=== PATIENT | male | born 1950 | race Caucasian/White ===

== ENCOUNTER 2019-07-09 16:33 | Emergency (ER) | payer MEDICARE, OTHER ==
--- NOTE | 2019-07-09 16:41 | ERPHSYRPT ---
- History of Present Illness Time Seen by Provider: 07/09/19 16:41 Source: patient, EMS Physician History: the patient is a 69-year-old male with a past medical history significant for COPD, emphysema, recently diagnosed lymphoma and is due to start radiation therapy tomorrow, ongoing cigarette smoking, short foot, and a chronic wound to the bottom of his right foot in addition to a wound noted to his left foot presents with a chief complaint of generalized weakness and fever. He presents via EMS after being transported from home. Of note, the patient is a poor historian. He did endorse that he has had a productive cough over the last couple days and then this afternoon started to feel overall weak, started to experience chills, and had a subjective fever. He also endorse increased shortness of breath over the past couple days. He reportedly has not been taking his nebulizer treatments at home. He follows with [facility] for [facility] care in addition to oncology, specifically the location in [facility]. The patient denies chest pain, nausea, vomiting as well as abdominal pain. The patient denies diarrhea. He reportedly does not use supplemental oxygen at home and EMS noted that he had room air saturations at 88-89%. Allergies/Adverse Reactions: bupropion Allergy (Verified 07/09/19 17:13) cephalexin [From Keflex] Allergy (Verified 07/09/19 17:13) erythromycin base Allergy (Verified 07/09/19 17:13) oxycodone Allergy (Verified 07/09/19 17:13) quetiapine Allergy (Verified 07/09/19 17:13) simvastatin Allergy (Verified 07/09/19 17:13) - Review of Systems Constitutional: Fever, Chills, Weakness Eyes: No Symptoms Ears, Nose, & Throat: No Ear Pain, No Ear Discharge, No Throat Swelling, No Hoarse Respiratory: Cough, Dyspnea, Dyspnea on Exertion (CASTILLO), Wheezing Cardiac: No Chest Pain, No Edema, No Palpitations Abdominal/Gastrointestinal: No Abdominal Pain, No Nausea, No Vomiting, No Diarrhea Musculoskeletal: Joint Pain, Myalgias Skin: Other (Chronic wound noted to bottom of R foot as well as the left foot. Is), No Rash Psychological: No Symptoms Endocrine: No Symptoms Hematologic/Lymphatic: No Symptoms Immunological/Allergic: No Symptoms All Other Systems: Reviewed and Negative - Nursing Vital Signs Nursing Vital Signs: Initial Vital Signs Temperature 100.5 F 07/09/19 16:35 Pulse Rate 106 H 07/09/19 16:35 Respiratory Rate 28 H 07/09/19 16:35 Blood Pressure 125/58 07/09/19 16:35 O2 Sat by Pulse Oximetry 99 07/09/19 16:35 Pain Scale Pain Intensity 0 - Physical Exam General Appearance: moderate distress, alert (and), obese, other (Chronically ill appearing male) Eye Exam: PERRL/EOMI, EOM palsy/anisocoria (in the) Ears, Nose, Throat Exam: normal ENT inspection, other (The patient was wearing a NC supplying 2 LPM supplemental oxygen) Neck Exam: supple Respiratory Exam: respiratory distress, diminished breath sounds, rhonchi, wheezing, No chest tenderness Cardiovascular Exam: normal peripheral pulses, tachycardia, capillary refill <2 sec, capillary refill 2-3 sec Gastrointestinal/Abdomen Exam: soft, distention, No tenderness, No mass, No ecchymosis, No pulsatile mass, No rebound Rectal Exam: deferred Back Exam: normal inspection Extremity Exam: other (Feet appeared consistent with Charcot foot with chronic appearing diabetic ulcer noted to the bottom of the R foot with packing in the wound. Diabetic ulcer noted to the L foot) Neurologic Exam: alert, oriented x 3, cooperative Skin Exam: normal color, dry, rash, other (Skin felt hot to touch), No petechiae , No jaundice SpO2 Interpretation: hypoxic - Course Nursing assessment & vital signs reviewed: Yes EKG Interpreted by Me: RATE (108 bpm sinus tachycardia), NORMAL AXIS, NORMAL ST- T - Radiology Exams Chest X-ray Interpretation: Reviewed by me (Pneumonia, likely right middle lobe and right lower lobe, awaiting formal radiology review) Foot X-ray Interpretation: Teleradiologist Report (old 5th metatarsal fracture. No evidence of osteomyelitis) Ordered Tests: Active Orders 24 hr Category Date Time Status IV Insertion STAT Care 07/09/19 16:44 Active CHEST 2 VIEWS (PA AND LAT) Stat Exams 07/09/19 16:42 Taken FOOT (MINIMUM 3 VIEWS) Stat Exams 07/09/19 16:50 Taken BLOOD CULTURE Stat Lab 07/09/19 17:15 Received BMP Stat Lab 07/09/19 16:55 Completed CBC W DIFF Stat Lab 07/09/19 16:55 Completed Hepatic Function Panel Stat Lab 07/09/19 16:55 Completed LIPASE Stat Lab 07/09/19 16:55 Completed Lactic Acid Stat Lab 07/09/19 16:56 Completed Lactic Acid Stat Lab 07/09/19 21:52 Completed TROPONIN Stat Lab 07/09/19 16:55 Completed Peak Expiratory Flow Rate ONCE RT 07/09/19 19:31 Active Respiratory Therapy Assessment DAILY RT 07/09/19 19:31 Active Medication Summary Discontinued Medications Generic Name Dose Route Start Last Admin Trade Name Freq PRN Reason Stop Dose Admin Acetaminophen 975 mg 07/09/19 16:51 07/09/19 17:11 Tylenol 325 Mg PO 07/09/19 16:52 975 mg STAT ONE Administration Acetaminophen Confirm 07/09/19 17:11 Tylenol 325 Mg Administered 07/09/19 17:12 Dose 975 mg .ROUTE .STK-MED ONE Albuterol Sulfate 2.5 mg 07/09/19 19:16 07/09/19 19:26 Proventil 2.5 Mg/3 Ml Neb IH 07/09/19 19:17 2.5 mg STAT ONE Administration Albuterol Sulfate Confirm 07/09/19 19:22 Proventil Solution 2.5 Mg/0.5 Ml Administered 07/09/19 19:23 Dose 2.5 mg IH .STK-MED ONE Albuterol/Ipratropium 3 ml 07/09/19 19:16 07/09/19 19:25 Duoneb 0.5-3 Mg/3 Ml Neb IH 07/09/19 19:17 3 ml STAT ONE Administration Albuterol/Ipratropium Confirm 07/09/19 19:22 Duoneb 0.5-3 Mg/3 Ml Neb Administered 07/09/19 19:23 Dose 3 ml IH .STK-MED ONE Aspirin 324 mg 07/09/19 19:20 07/09/19 20:21 Baby Aspirin 81 Mg Chew PO 07/09/19 19:21 Not Given STAT ONE Lactated Ringer's 1,000 mls @ 999 mls/hr 07/09/19 17:26 07/09/19 19:18 Lactated Ringers IV 07/09/19 18:26 Infused .Q1H1M ONE Infusion Lactated Ringer's Confirm 07/09/19 17:25 Lactated Ringers Administered 07/09/19 17:26 Dose 1,000 mls @ ud IV .STK-MED ONE Meropenem 1 g/ Sodium Chloride 100 mls @ 200 mls/hr 07/09/19 17:50 07/09/19 18:00 IV 07/09/19 18:19 200 mls/hr STAT ONE Administration Vancomycin HCl 1 gm in 250 mls @ 167 mls/hr 07/09/19 18:00 07/09/19 21:00 Vancomycin 1gm/ Ns 250ml IV 07/09/19 19:59 167 mls/hr Q1H ASHKAN Administration Sodium Chloride Confirm 07/09/19 18:06 Sodium Chloride 0.9% 100 Ml Ivpb Administered 07/09/19 18:07 Dose 100 mls @ ud IV .STK-MED ONE Lactated Ringer's 1,000 mls @ 125 mls/hr 07/09/19 19:30 07/09/19 21:08 Lactated Ringers IV 08/08/19 19:29 125 mls/hr .Q8H ASHKAN Administration Vancomycin HCl Confirm 07/09/19 18:13 Vancomycin 1gm/ Ns 250ml Administered 07/09/19 18:14 Dose 250 mls @ ud IV .STK-MED ONE Vancomycin HCl Confirm 07/09/19 20:57 Vancomycin 1gm/ Ns 250ml Administered 07/09/19 20:58 Dose 250 mls @ ud IV .STK-MED ONE Lactated Ringer's Confirm 07/09/19 21:07 Lactated Ringers Administered 07/09/19 21:08 Dose 1,000 mls @ ud IV .STK-MED ONE Meropenem Confirm 07/09/19 18:06 Merrem 1 Gm Administered 07/09/19 18:07 Dose 1 g IV .STK-MED ONE Lab/Rad Data: Laboratory Result Diagrams 07/09/19 16:55 07/09/19 16:55 Laboratory Results 07/09/19 07/09/19 07/09/19 Range/Units 21:52 16:56 16:55 WBC (4.0-10.5) K/mm3 RBC (4.1-5.6) M/mm3 Hgb (12.5-18.0) gm/dl Hct (42-50) % MCV (78-100) fl MCH (26-32) pg MCHC (32-36) g/dl RDW (11.5-14.0) % Plt Count (150-450) K/mm3 MPV (7.5-11.0) fl Gran % (36.0-66.0) % Eos # (Auto) (0-0.5) Absolute Lymphs (auto) (1.0-4.6) Absolute Monos (auto) (0.0-1.3) Lymphocytes % (24.0-44.0) % Monocytes % (0.0-12.0) % Eosinophils % (0.00-5.0) % Basophils % (0.0-0.4) % Absolute Granulocytes (1.4-6.9) Basophils # (0-0.4) Sodium (137-145) mmol/L Potassium (3.5-5.1) mmol/L Chloride (98-107) mmol/L Carbon Dioxide (22-30) mmol/L Anion Gap (5-15) MEQ/L BUN (9-20) mg/dL Creatinine (0.66-1.25) mg/dL Estimated GFR ML/MIN Glucose (74-106) mg/dL Lactic Acid 3.1 H 5.1 H (0.4-2.0) Calcium (8.4-10.2) mg/dL Total Bilirubin (0.2-1.3) mg/dL Direct Bilirubin (0.0-0.4) mg/dL AST (17-59) U/L ALT (0-50) U/L Alkaline Phosphatase (38-126) U/L Troponin I (0.000-0.034) ng/mL Serum Total Protein (6.3-8.2) g/dL Albumin (3.5-5.0) g/dL Lipase (23-300) U/L Influenza Type A Ag NEGATIVE (NEGATIVE) Influenza Type B Ag NEGATIVE (NEGATIVE) RSV (PCR) NEGATIVE (Negative) Slides for Path Review 07/09/19 07/09/19 Range/Units 16:55 16:55 WBC 15.1 H (4.0-10.5) K/mm3 RBC 4.69 (4.1-5.6) M/mm3 Hgb 14.3 (12.5-18.0) gm/dl Hct 44.2 (42-50) % MCV 94.2 (78-100) fl MCH 30.5 (26-32) pg MCHC 32.4 (32-36) g/dl RDW 13.7 (11.5-14.0) % Plt Count 243 (150-450) K/mm3 MPV 11.0 (7.5-11.0) fl Gran % 90.8 H (36.0-66.0) % Eos # (Auto) 0.01 (0-0.5) Absolute Lymphs (auto) 0.55 L (1.0-4.6) Absolute Monos (auto) 0.82 (0.0-1.3) Lymphocytes % 3.6 L (24.0-44.0) % Monocytes % 5.4 (0.0-12.0) % Eosinophils % 0.1 (0.00-5.0) % Basophils % 0.1 (0.0-0.4) % Absolute Granulocytes 13.74 H (1.4-6.9) Basophils # 0.01 (0-0.4) Sodium 142 (137-145) mmol/L Potassium 3.8 (3.5-5.1) mmol/L Chloride 107 (98-107) mmol/L Carbon Dioxide 21 L (22-30) mmol/L Anion Gap 18.3 H (5-15) MEQ/L BUN 16 (9-20) mg/dL Creatinine 0.89 (0.66-1.25) mg/dL Estimated GFR > 60.0 ML/MIN Glucose 159 H (74-106) mg/dL Lactic Acid (0.4-2.0) Calcium 9.5 (8.4-10.2) mg/dL Total Bilirubin 0.90 (0.2-1.3) mg/dL Direct Bilirubin 0.5 H (0.0-0.4) mg/dL AST 41 (17-59) U/L ALT 19 (0-50) U/L Alkaline Phosphatase 105 (38-126) U/L Troponin I 0.044 H* (0.000-0.034) ng/mL Serum Total Protein 8.0 (6.3-8.2) g/dL Albumin 4.1 (3.5-5.0) g/dL Lipase 83 (23-300) U/L Influenza Type A Ag (NEGATIVE) Influenza Type B Ag (NEGATIVE) RSV (PCR) (Negative) Slides for Path Review YES - Progress Progress: improved Progress Note: 07/09/19 19:20 Currently paging the [facility] for transfer for severe sepsis due to PNA. 07/09/19 19:28 [facility] reported has no beds. Patient will need to be either admitted here or transferred to another facility 07/09/19 20:[address] Cisneros, no doctor physician for this [facility] this evening who recommended transfer to another facility. I spoke to the patient about this and he did not want to go to [place] and ok with being transferred to [place]. 07/09/19 20:31 I spoke to [facility] transfer center who agreed to accept the patient for transfer. Will call back with the accepting physician 07/09/19 20:47 [facility] called back and Dr. Rdz accepted the patient for transfer. Counseled pt/family regarding: lab results, diagnosis, rad results - Departure Departure Disposition: Transfer ([facility]) Clinical Impression: Pneumonia, Severe sepsis, Charcot foot due to diabetes mellitus, Diabetic ulcer of left foot, Open nondisplaced fracture of fifth right metatarsal bone, Metabolic acidosis Condition: Stable Critical Care Time: No Referrals: HOSPITAL,'S [Primary Care Provider] -
[2019-07-09] MEDS ORDERED: TYLENOL 325 MG PO ONE (16:51)
[2019-07-09] MEDS ORDERED: TYLENOL 325 MG ONE (17:11)
[2019-07-09 17:23] LABS: Absolute Neutrophil Ct (ANC) 13.74 (1.4-6.9); BASOPHIL % 0.1 % (0.0-0.4); Basophil (Absolute #) 0.01 (0-0.4); Eosinophil % 0.1 % (0.00-5.0); Eosinophil (Absolute #) 0.01 (0-0.5); Hematocrit 44.2 % (42-50); Hemoglobin 14.3 gm/dl (12.5-18.0); Lymphocyte (Absolute #) 0.55 (1.0-4.6); Lymphocytes % 3.6 % (24.0-44.0); Mean Cell Volume 94.2 fl (78-100); Mean Corpuscular Hemoglobin 30.5 pg (26-32); Mean Corpuscular Hgb Concent. 32.4 g/dl (32-36); Monocyte (Absolute #) 0.82 (0.0-1.3); Monocytes % 5.4 % (0.0-12.0); Neutrophil % 90.8 % (36.0-66.0); Platelet Count 243 K/mm3 (150-450); Red Blood Count 4.69 M/mm3 (4.1-5.6); Red Cell Distribution Width 13.7 % (11.5-14.0); White Blood Count 15.1 K/mm3 (4.0-10.5)
[2019-07-09] MEDS ORDERED: Lactated Ringers 1,000 ML IV ONE ×3 (17:25→21:07)
[2019-07-09 17:39] LABS: INFLUENZA A NEGATIVE (NEGATIVE); INFLUENZA B NEGATIVE (NEGATIVE); RESPIRATORY SYNCTIAL VIRUS NEGATIVE (Negative)
[2019-07-09 17:45] LABS: ALBUMIN 4.1 g/dL (3.5-5.0); ALKALINE PHOSPHATASE 105 U/L (38-126); ANION GAP 18.3 MEQ/L (5-15); BLOOD UREA NITROGEN 16 mg/dL (9-20); CHLORIDE 107 mmol/L (98-107); Calcium 9.5 mg/dL (8.4-10.2); Carbon Dioxide 21 mmol/L (22-30); Creatinine 1 0.89 mg/dL (0.66-1.25); Direct Bilirubin 0.5 mg/dL (0.0-0.4); Glucose 159 mg/dL (74-106); LIPASE 83 U/L (23-300); Potassium 3.8 mmol/L (3.5-5.1); SGOT/AST 41 U/L (17-59); SGPT/ALT 19 U/L (0-50); SODIUM 142 mmol/L (137-145)
[2019-07-09 17:47] LABS: TROPONIN 0.044 ng/mL (0.000-0.034)
[2019-07-09] MEDS ORDERED: Merrem 1 GM 1 G in Sodium Chloride 100ML MINI-BAG PLUS 100 ML IV ONE (17:50)
[2019-07-09] MEDS ORDERED: Merrem 1 GM IV ONE (18:06)
[2019-07-09] MEDS ORDERED: Sodium Chloride 0.9% 100 ML IVPB 100 ML IV ONE (18:06)
[2019-07-09] MEDS ORDERED: Vancomycin 1GM/ Ns 250ML*** 250 ML IV ONE ×2 (18:13→20:57)
[2019-07-09] MEDS ORDERED: PROVENTIL 2.5 MG/3 ML NEB IH ONE (19:16)
[2019-07-09] MEDS ORDERED: DUONEB 0.5-3 MG/3 ml Neb IH ONE ×2 (19:16→19:22)
[2019-07-09] MEDS: Vancomycin 1GM/ Ns 250ML*** 1 GM/250 ML IVPB IV SCH ×2 (19:18→21:00)
[2019-07-09] MEDS ORDERED: BABY ASPIRIN 81 MG CHEW PO ONE (19:20)
[2019-07-09] MEDS ORDERED: PROVENTIL Solution 2.5 MG/0.5 ML IH ONE (19:22)
[2019-07-09] MEDS ORDERED: Lactated Ringers 1,000 ML IV SCH (19:30)
[2019-07-09 21:22] LABS: Slide Review 1 YES
[2019-07-09 21:45] VITALS: BP 93/58; PULSE 88; O2SAT 97
--- NOTE | 2019-07-10 08:33 | XRAY ---
Indication: Wound bottom of foot. Osteomyelitis. Comparison: None 3 nonweightbearing views of the right foot demonstrates plantar soft tissue swelling, Charcot foot appearance, osteopenia, 1st/2nd MTP degenerative changes, old distal 5th metatarsal fracture, navicular bone cyst, small heel spur, talonavicular accessory ossicle, and medial ankle vascular clip. No acute fracture, suspicious bony lesions, or osseous destructive process.
--- NOTE | 2019-07-10 08:36 | XRAY ---
Indication: Fever and cough. Comparison: None PA/lateral chest demonstrates diffuse right lung interstitial alveolar opacities without consolidation/large effusion. Remaining heart and left lung unremarkable. Bony thorax intact with moderate degenerative changes and surgical clips base of the left neck.
== END 2019-07-09 21:54 | disposition short-term general hospital (02) ==
LOC: ED 16:33
DX: J18.9 Pneumonia, unspecified organism (principal); R65.20 Severe sepsis without septic shock; I73.9 Peripheral vascular disease, unspecified; E11.621 Type 2 diabetes mellitus with foot ulcer; L97.529 Non-pressure chronic ulcer of other part of left foot with unspecified severity; S92.354B Nondisplaced fracture of fifth metatarsal bone, right foot, initial encounter for open fracture; E87.2 Acidosis
CPT/HCPCS: 36000; 36415; 71046; 73630; 80048; 80076; 83605; 83690; 84484; 85025; 87040; 87631; 94150; 94640; 96360; 96361; 96365; 96367; 99285; J3370; J7609; A9270-GY

== ENCOUNTER 2023-09-15 12:36 | Emergency (ER) | payer OTHER ==
--- NOTE | 2023-09-15 12:44 | ERPHSYRPT ---
- History of Present Illness Time Seen by Provider: 09/15/23 12:44 Historian: patient, family, EMS Exam Limitations: clinical condition Physician History: This is a morbidly obese 73-year-old white female patient who is a poor historian and additional, independent history was obtained by the paramedics as well as the patient's spouse because the patient is a poor historian. This patient was brought to the emergency department secondary to significant right upper quadrant abdominal pain and bilateral flank pain and weakness. Upon arrival to the patient's home, the patient's room air oxygen saturation level was 88%. He was placed on 3 L nasal cannula. He arrives to the emergency department, vital signs are stable with a room air oxygen saturation now at 96 to 98%. Patient receives his primary care at the [facility] in [place]. The call to the paramedics was for right upper quadrant abdominal pain. Patient woke up with significant (8 out of 10) right upper quad abdominal pain that has only mildly subsided. Patient ate roast chicken, baked beans and mac & cheese last evening for supper. He has had a gallbladder attack in the past. Today, there is no associated vomiting symptoms. Patient also complains of feeling weak. Patient currently denies chest pain. Patient has a history of COPD, diabetes, peptic ulcer disease and has a history of lymphoma in the past. He continues to be a daily smoker of tobacco cigarettes. Timing/Duration: today Activities at Onset: none Quality: aching Abdominal Pain Onset Location: RUQ Pain Radiation: no radiation Severity of Pain-Max: moderate Severity of Pain-Current: mild (Moderate) Modifying Factors: Improves With: nothing Associated Symptoms: shortness of breath, weakness Previous symptoms: no prior history, no recent treatment Allergies/Adverse Reactions: bupropion Allergy (Verified 09/15/23 12:58) cephalexin [From Keflex] Allergy (Verified 09/15/23 12:58) erythromycin base Allergy (Verified 09/15/23 12:58) oxycodone Allergy (Verified 09/15/23 12:58) quetiapine Allergy (Verified 09/15/23 12:58) simvastatin Allergy (Verified 09/15/23 12:58) Home Medications: Unobtainable 09/15/23 [History] Hx Influenza Vaccination/Date Given: Yes Hx Pneumococcal Vaccination/Date Given: Yes Travel Risk - International Travel Have you traveled outside of the country in past 3 weeks: No - Emerging Infectious Disease Are you exhibiting symptoms associated with any current EIDs: Yes Symptoms: Shortness of Breath - Review of Systems Constitutional: Weakness Eyes: No Symptoms Ears, Nose, & Throat: No Symptoms Respiratory: Dyspnea on Exertion (CASTILLO) Cardiac: No Symptoms Abdominal/Gastrointestinal: No Symptoms Genitourinary Symptoms: No Symptoms Musculoskeletal: No Symptoms Skin: No Symptoms Neurological: No Symptoms Psychological: No Symptoms Endocrine: No Symptoms Hematologic/Lymphatic: No Symptoms Immunological/Allergic: No Symptoms All Other Systems: Reviewed and Negative - Past Medical History Pertinent Past Medical History: Yes Respiratory History: COPD Endocrine Medical History: Diabetes Type II Musculoskeletal History: Other Other Medical History: ulcers - Past Surgical History Past Surgical History: Yes - Social History Smoking Status: Current every day smoker Exposure to second hand smoke: Yes Drug Use: none Patient Lives Alone: No - Nursing Vital Signs Nursing Vital Signs: Initial Vital Signs Temperature 99.5 F 09/15/23 12:44 Pulse Rate 92 H 09/15/23 12:44 Respiratory Rate 17 09/15/23 12:44 Blood Pressure 138/72 09/15/23 12:44 O2 Sat by Pulse Oximetry 93 L 09/15/23 12:44 Pain Scale Pain Intensity 8 - Physical Exam General Appearance: mild distress, alert, anxiety, obese Eye Exam: PERRL/EOMI, eyes nml inspection Ears, Nose, Throat Exam: normal ENT inspection, moist mucous membranes Neck Exam: normal inspection, non-tender, supple, full range of motion Respiratory Exam: normal breath sounds, lungs clear, airway intact, No chest tenderness, No respiratory distress Cardiovascular Exam: regular rate/rhythm, normal heart sounds, normal peripheral pulses Gastrointestinal/Abdomen Exam: soft, normal bowel sounds, tenderness (Right upper quadrant to palpation), guarding Rectal Exam: not done Back Exam: normal inspection, normal range of motion, No CVA tenderness, No vertebral tenderness Extremity Exam: other (Patient has bilateral lower extremity below the knee swelling, chronic venous stasis disease and very dry skin) Neurologic Exam: alert, oriented x 3, cooperative, oven tender II-XII nml as tested, sensation nml Skin Exam: normal color, warm, dry Lymphatic Exam: No adenopathy SpO2 Interpretation: normal O2 Delivery: Room Air - Course Nursing assessment & vital signs reviewed: Yes EKG Interpreted by Me: RATE (90), Sinus Rhythm, NORMAL AXIS, NORMAL INTERVALS, NORMAL QRS, Non-specific ST Changes, Other (No acute ischemic changes on today's twelve-lead EKG. I compared today's twelve-lead EKG with that 12-lead EKG that was performed on 07/09/2019. Today, the twelve-lead EKG shows resolution of sinus tachycardia. The remainder of today's twelve-lead EKG is no different than that comparison twelve-le) Ordered Tests: Active Orders 24 hr Category Date Time Status EKG-ER Only STAT Care 09/15/23 13:08 Active IV Insertion STAT Care 09/15/23 13:08 Active ABDOMEN AND PELVIS W/0 CONTRAS [CT] Stat Exams 09/15/23 13:09 Completed CHEST WITH CONTRAST [CT] Stat Exams 09/15/23 14:29 Completed AMYLASE Stat Lab 09/15/23 13:30 Completed BLOOD CULTURE Stat Lab 09/15/23 13:45 Received CBC W DIFF Stat Lab 09/15/23 13:30 Completed CMP Stat Lab 09/15/23 13:30 Completed D-DIMER QUANTITATIVE Stat Lab 09/15/23 13:30 Completed LIPASE Stat Lab 09/15/23 13:30 Completed NT PRO BNPII Stat Lab 09/15/23 13:30 Completed TROPONIN Q4H Lab 09/15/23 13:30 Completed TROPONIN Q4H Lab 09/15/23 17:15 Ordered TROPONIN Q4H Lab 09/15/23 21:15 Ordered UA W/RFX UR CULTURE Stat Lab 09/15/23 13:09 Ordered Medication Summary Generic Name Dose Route Start Last Admin Trade Name Freq PRN Reason Stop Dose Admin Sodium Chloride 1,000 mls @ 100 mls/hr 09/15/23 13:15 09/15/23 13:19 Sodium Chloride 0.9% 1000 Ml IV 10/15/23 13:14 100 mls/hr .Q10H ASHKAN Administration Discontinued Medications Generic Name Dose Route Start Last Admin Trade Name Freq PRN Reason Stop Dose Admin Piperacillin Sod/Tazobactam 100 mls @ 200 mls/hr 09/15/23 15:10 09/15/23 15:43 Sod 4.5 gm/ Sodium Chloride IV 09/15/23 15:39 200 mls/hr STAT ONE Administration Sodium Chloride Confirm 09/15/23 15:28 Sodium Chloride 100ml Mini-Bag Plus Administered 09/15/23 15:29 Dose 100 mls @ ud IV .STK-MED ONE Sodium Chloride Confirm 09/15/23 15:44 Sodium Chloride 100ml Mini-Bag Plus Administered 09/15/23 15:45 Dose 100 mls @ ud IV .STK-MED ONE Morphine Sulfate 4 mg 09/15/23 13:08 09/15/23 13:19 Morphine Sulfate 4 Mg/Ml Injection IV 09/15/23 13:09 4 mg STAT ONE Administration Morphine Sulfate Confirm 09/15/23 13:15 Morphine Sulfate 4 Mg/Ml Injection Administered 09/15/23 13:16 Dose 4 mg .ROUTE .STK-MED ONE Ondansetron HCl 4 mg 09/15/23 13:08 09/15/23 13:19 Ondansetron Hcl 4 Mg/2 Ml Vial IV 09/15/23 13:09 4 mg STAT ONE Administration Ondansetron HCl Confirm 09/15/23 13:15 Ondansetron Hcl 4 Mg/2 Ml Vial Administered 09/15/23 13:16 Dose 4 mg .ROUTE .STK-MED ONE Piperacillin Sod/Tazobactam Sod Confirm 09/15/23 15:27 Piperacillin/Tazobactam Sodium 4.5 Gm Vial Administered 09/15/23 15:28 Dose 4.5 gm IV .STK-MED ONE Piperacillin Sod/Tazobactam Sod Confirm 09/15/23 15:43 Piperacillin/Tazobactam Sodium 4.5 Gm Vial Administered 09/15/23 15:44 Dose 4.5 gm IV .STK-MED ONE Lab/Rad Data: Laboratory Result Diagrams 09/15/23 13:30 09/15/23 13:30 Laboratory Results 09/15/23 09/15/23 09/15/23 Range/Units 13:30 13:30 13:30 WBC (4.0-10.5) x10^3/uL RBC (4.1-5.6) x10^6/uL Hgb (12.5-18.0) g/dL Hct (42-50) % MCV (78-100) fL MCH (26-32) pg MCHC (32-36) g/dL RDW (11.5-14.0) % Plt Count (150-450) x10^3/uL MPV (7.5-11.0) fL Gran % (36.0-66.0) % Immature Gran % (Auto) (0.00-0.4) % Nucleat RBC Rel Count (0.00-0.1) % Eos # (Auto) (0-0.5) x10^3/uL Immature Gran # (Auto) (0.00-0.03) x10^3u/L Absolute Lymphs (auto) (1.0-4.6) x10^3/uL Absolute Monos (auto) (0.0-1.3) x10^3/uL Absolute Nucleated RBC (0.00-0.01) x10^3u/L Lymphocytes % (24.0-44.0) % Monocytes % (0.0-12.0) % Eosinophils % (0.00-5.0) % Basophils % (0.0-0.4) % Absolute Granulocytes (1.4-6.9) x10^3/uL Basophils # (0-0.4) x10^3/uL D-Dimer 1.47 H* (0.0-0.50) mg/L Sodium (135-145) mmol/L Potassium (3.5-5.1) mmol/L Chloride (98-107) mmol/L Carbon Dioxide (22-30) mmol/L Anion Gap (5-15) MEQ/L BUN (9-20) mg/dL Creatinine (0.66-1.25) mg/dL Estimated GFR ML/MIN Glucose (74-106) mg/dL Calcium (8.4-10.2) mg/dL Total Bilirubin (0.2-1.3) mg/dL AST (17-59) U/L ALT (0-50) U/L Alkaline Phosphatase (38-126) U/L Troponin I 0.088 H* (0.000-0.034) ng/mL NT-Pro-B Natriuret Pep 1380 (<300) pg/mL Serum Total Protein (6.3-8.2) g/dL Albumin (3.5-5.0) g/dL Amylase (30-110) U/L Lipase (23-300) U/L 09/15/23 09/15/23 Range/Units 13:30 13:30 WBC 17.6 H (4.0-10.5) x10^3/uL RBC 4.07 L (4.1-5.6) x10^6/uL Hgb 12.2 L (12.5-18.0) g/dL Hct 38.0 L (42-50) % MCV 93.4 (78-100) fL MCH 30.0 (26-32) pg MCHC 32.1 (32-36) g/dL RDW 14.5 H (11.5-14.0) % Plt Count 209 (150-450) x10^3/uL MPV 10.3 (7.5-11.0) fL Gran % 89.7 H (36.0-66.0) % Immature Gran % (Auto) 1.4 H (0.00-0.4) % Nucleat RBC Rel Count 0.0 (0.00-0.1) % Eos # (Auto) 0.02 (0-0.5) x10^3/uL Immature Gran # (Auto) 0.25 H (0.00-0.03) x10^3u/L Absolute Lymphs (auto) 0.72 L (1.0-4.6) x10^3/uL Absolute Monos (auto) 0.79 (0.0-1.3) x10^3/uL Absolute Nucleated RBC 0.00 (0.00-0.01) x10^3u/L Lymphocytes % 4.1 L (24.0-44.0) % Monocytes % 4.5 (0.0-12.0) % Eosinophils % 0.1 (0.00-5.0) % Basophils % 0.2 (0.0-0.4) % Absolute Granulocytes 15.80 H (1.4-6.9) x10^3/uL Basophils # 0.04 (0-0.4) x10^3/uL D-Dimer (0.0-0.50) mg/L Sodium 140 (135-145) mmol/L Potassium 3.8 (3.5-5.1) mmol/L Chloride 107 (98-107) mmol/L Carbon Dioxide 23 (22-30) mmol/L Anion Gap 13.4 (5-15) MEQ/L BUN 15 (9-20) mg/dL Creatinine 1.48 H (0.66-1.25) mg/dL Estimated GFR 49.0 ML/MIN Glucose 130 H (74-106) mg/dL Calcium 9.2 (8.4-10.2) mg/dL Total Bilirubin 0.70 (0.2-1.3) mg/dL AST 33 (17-59) U/L ALT 19 (0-50) U/L Alkaline Phosphatase 79 (38-126) U/L Troponin I (0.000-0.034) ng/mL NT-Pro-B Natriuret Pep (<300) pg/mL Serum Total Protein 7.8 (6.3-8.2) g/dL Albumin 3.7 (3.5-5.0) g/dL Amylase 47 (30-110) U/L Lipase 58 (23-300) U/L - Progress Progress: improved, re-examined Progress Note: 09/15/23 13:19 This patient's medical issue is 1 of moderate to high complexity. The level of complexity in the workup performed is based on review of the patient's past me dical history, review of the patient's medication list, review of patient drug allergy list, history present illness and physical findings on examination. The workup in this patient includes placement of intravenous line, infusion of low rate normal saline solution, CBC, CMP, urinalysis, amylase, lipase, twelve-lead EKG, BNP, D-dimer, troponin level and CT scan of the abdomen pelvis without contrast. We may need to order a CT scan of the chest with contrast if the D- dimer is elevated. If it is not elevated we will order a chest x-ray. 09/15/23 15:13 CT scan of the abdomen pelvis without contrast was interpreted by the radiologist and I reviewed the impression. Impression states bilateral lower lobe consolidating/lung consolidating airspace disease. In addition, there are a few small hepatic indeterminate hypodensities. There is evidence of chronic pulmonary emphysema. There is no evidence of abdominal aortic aneurysm. 09/15/23 15:53 CT scan of the chest with contrast was interpreted by the radiologist and I reviewed the impression. The impression states that there is bilateral lower lobe consolidating/nonconsolidating airspace disease. Right side greater than left. There is no evidence for pulmonary embolus. 09/15/23 15:55 Interpreted the patient's laboratory data results. This patient has leukocytosis with a white blood cell count of 17.6 with a left shift. We prov ided the patient with Zosyn intravenous antibiotic. In addition, the patient had an elevated D-dimer level 1.[address] scan of the chest with contrast. In addition, the patient was found to have a troponin level of 0.088. 09/15/23 16:34 We contacted the [facility]. We reviewed the patient history, the presenting complaint, the workup performed in its results. They deny transfer. They state they have no beds available for this patient. They authorized transfer to another facility. The patient prefers to her [facility]. He does not want to be transferred to [facility]. We will place a call into [facility] in [facility] 09/15/23 16:[address] Shaffer, the emergency department physician at [facility]. I reviewed the patient history, I reviewed the patient presenting complaint, I reviewed the results of the patient's twelve-lead EKG, laboratory data results, and radiographic studies. He accepts the patient in transfer. Counseled pt/family regarding: lab results, diagnosis, rad results Medical Desision Making - Independent Historian Additional History obtained from: Spouse - Discussion of managment Reviewed:: Test results, Need for additional workup - Diagnostic Testing Diagnostic test were ordered, analyzed, and reviewed by me: Yes Radiological Interpretation: Reviewed by me, Teleradiologist Report - Risk of complications The pt has a high risk of morbidity or mortality based on: Decision regarding hospitilization or escalation of hosp level of care - Departure Departure Disposition: Transfer Clinical Impression: Hypoxia, Leukocytosis, Bilateral pneumonia, Elevated troponin level Condition: Fair Critical Care Time: Yes Critical Care Time(excluding separately billable procedures): Critical 30-74 mins (45 minutes) Referrals: HOSPITAL,'S [Primary Care Provider] - Follow up/PCP as directed
[2023-09-15 12:58] VITALS: TEMP 99.5
[2023-09-15] MEDS ORDERED: Sodium Chloride 0.9% 1000 ML 1,000 ML ONE (13:15)
[2023-09-15] MEDS ORDERED: MORPHINE SULFATE 4 MG INJ ONE (13:15)
[2023-09-15] MEDS ORDERED: Zofran 4 MG/2 ML VIAL ONE (13:15)
[2023-09-15] MEDS: MORPHINE SULFATE 4 MG INJ IV ONE (13:19)
[2023-09-15] MEDS: Zofran 4 MG/2 ML VIAL IV ONE (13:19)
[2023-09-15] MEDS: Sodium Chloride 0.9% 1000 ML 1,000 ML IV SCH (13:19)
[2023-09-15 13:51] LABS: BASOPHIL % 0.2 % (0.0-0.4); Basophil (Absolute #) 0.04 x10^3/uL (0-0.4); Eosinophil % 0.1 % (0.00-5.0); Eosinophil (Absolute #) 0.02 x10^3/uL (0-0.5); Hemoglobin 12.2 g/dL (12.5-18.0); IMMATURE GRAN # 0.25 x10^3u/L (0.00-0.03); IMMATURE GRAN % 1.4 % (0.00-0.4); Lymphocyte (Absolute #) 0.72 x10^3/uL (1.0-4.6); Lymphocytes % 4.1 % (24.0-44.0); Mean Cell Volume 93.4 fL (78-100); Mean Corpuscular Hgb Concent. 32.1 g/dL (32-36); Mean Platelet Volume 10.3 fL (7.5-11.0); Monocyte (Absolute #) 0.79 x10^3/uL (0.0-1.3); Monocytes % 4.5 % (0.0-12.0); Neutrophil % 89.7 % (36.0-66.0); Platelet Count 209 x10^3/uL (150-450); Red Blood Count 4.07 x10^6/uL (4.1-5.6); Red Cell Distribution Width 14.5 % (11.5-14.0); White Blood Count 17.6 x10^3/uL (4.0-10.5)
[2023-09-15 14:03] LABS: ALBUMIN 3.7 g/dL (3.5-5.0); ANION GAP 13.4 MEQ/L (5-15); BILIRUBIN,TOTAL 0.7 mg/dL (0.2-1.3); Calcium 9.2 mg/dL (8.4-10.2); Creatinine 1 1.48 mg/dL (0.66-1.25); Potassium 3.8 mmol/L (3.5-5.1); Total Protein 7.8 g/dL (6.3-8.2)
--- NOTE | 2023-09-15 14:31 | XRAY ---
Indication: Right upper quadrant pain. Multiple contiguous axial images obtained through the abdomen and pelvis without contrast. Comparison: None Lung bases demonstrates near-complete right lower lobe and lesser degree left lower lobe consolidating/nonconsolidating airspace disease without effusion. Also diffuse pulmonary emphysema. Heart not enlarged. Noncontrasted stomach and bowel loops appear nonobstructed. Appendectomy reported. Query prostatectomy with surgical clips. No free fluid/air. 2.2 cm left renal exophytic cyst. Left lobe liver demonstrates 2-3 round indeterminant hypodensities, largest 1.5 cm. Peripheral spleen demonstrates minimal capsular calcifications presumed sequela old injury/inflammation. Remaining gallbladder, pancreas, adrenal glands, kidneys, ureters, and bladder are unremarkable for noncontrast exam. Mild scattered aortoiliac calcifications without AAA. Osseous structures intact with osteopenia, mild/moderate degenerative changes throughout spine, and minimal levoscoliosis centered at L2. Multiple bilateral inguinal surgical/vascular clips. Impression: 1. Bilateral lower lobe consolidating/nonconsolidating airspace disease. Rule out aspiration pneumonia. 2. A few small hepatic indeterminant hypodensities. Sonogram could help differentiate solid versus cystic. 3. Chronic findings including pulmonary emphysema, left renal cyst, splenic capsular calcifications, arteriosclerotic disease, and chronic bony findings.
[2023-09-15 14:59] VITALS: O2SAT 97
--- NOTE | 2023-09-15 15:22 | XRAY ---
Indication: Short of breath. Elevated d-dimer. Multiple contiguous axial images obtained through the chest using 100 cc Isovue 370 contrast and PE protocol. Comparison: None Good opacification of the pulmonary arteries to include the lobar and segmental branches. No pulmonary embolus. Heart borderline enlarged. Aorta is normal in course and caliber. Mildly arteriosclerotic aorta without aneurysm/dissection. No pathologic mediastinal/hilar lymphadenopathy. Lungs demonstrates near complete right lower lobe and lesser degree left lower lobe consolidating/nonconsolidating airspace disease without effusion. Remaining lungs demonstrates moderate diffuse centrilobular pulmonary emphysema. Bony thorax intact with osteopenia, moderate degenerative changes throughout the spine, and minimal dextroscoliosis. Incidental right gynecomastia. CT abdomen/pelvis reported separately. Impression: 1. Negative pulmonary embolus. 2. Bilateral lower lobe consolidating/nonconsolidating airspace disease right greater than left. Rule out aspiration pneumonia. 2. Chronic findings including pulmonary emphysema, arteriosclerotic disease, gynecomastia, and chronic bony findings.
[2023-09-15] MEDS ORDERED: PIPERACILLIN/TAZOBACTAM IV ONE ×2 (15:27→15:43)
[2023-09-15] MEDS ORDERED: Sodium Chloride 100ML MINI-BAG PLUS 0 ML IV ONE (15:28)
[2023-09-15] MEDS: PIPERACILLIN/TAZOBACTAM 4.5 GM in Sodium Chloride 100ML MINI-BAG PLUS 100 ML IV ONE (15:43)
[2023-09-15] MEDS ORDERED: Sodium Chloride 100ML MINI-BAG PLUS 100 ML IV ONE (15:44)
[2023-09-15 16:44] VITALS: BP 108/58; PULSE 94; RESP 26
== END 2023-09-15 17:30 | disposition short-term general hospital (02) ==
LOC: EEVIPCON 12:36 → ED 12:36
DX: J18.9 Pneumonia, unspecified organism (principal); R09.02 Hypoxemia; D72.829 Elevated white blood cell count, unspecified; R77.8 Other specified abnormalities of plasma proteins; R10.11 Right upper quadrant pain; R53.1 Weakness; E11.9 Type 2 diabetes mellitus without complications; Z72.0 Tobacco use; Z99.81 Dependence on supplemental oxygen
CPT/HCPCS: 36000; 36415; 71260; 74176; 80053; 82150; 83690; 83880; 84484; 85025; 85379; 87040; 93005; 96374; 96375; 99284; 99291; J2270; J2405; J2543